=== PATIENT | female | born 1950 | race Caucasian/White ===

== ENCOUNTER 2018-05-04 09:05 | Day surgery (SDC) | payer MEDICARE, BC ==
[2018-04-26 12:35] VITALS: BMI 30.2
[~2018-05-04 09:05] MED LIST: DEXAMETHASONE SOD PHOSPHATE 10 MG/ML 1 ML VIAL IV ONE; HEPARIN SODIUM,PORCINE 5,000 UNIT/ML 1 ML VIAL SQ ONE; LACTATED RINGERS 1,000 ML IV SCH; LIDOCAINE 1% 20 ML VIAL (10MG/ML) FOR IV START INTRADERMA PRN; Pre Op ABX Message 1 EACH MISC MISCELLANE ONE; fentaNYL (PF) 50 MCG/ML 2 ML AMP IV PRN
--- NOTE | 2018-05-04 10:04 | P.GSHP ---
History of Present Illness H&P Date: 05/04/18 Chief Complaint: Left arm melanoma This a 68-year-old female referred from Dr. Angel. Patient had a left dorsal forearm 1.9 cm skin lesion. Patient had a left arm skin lesion which was biopsied. Patient's found have a melanoma. She presents today for wide local excision of left arm melanoma with sentinel node biopsy. The tumor thickness on biopsy 1.6 mm. Past Medical History Past Medical History: Cancer, Eye Disorder, Hyperlipidemia, Hypertension, Osteoarthritis (OA), Thyroid Disorder Additional Past Medical History / Comment(s): melanoma, glaucoma rt eye, gallbladder attack years ago, History of Any Multi-Drug Resistant Organisms: None Reported Past Surgical History: Tubal Ligation Additional Past Surgical History / Comment(s): D&C, javan cataracts, drain in rt eye(for glaucoma), mole removed from rt shoulder Past Anesthesia/Blood Transfusion Reactions: No Reported Reaction Smoking Status: Former smoker - Past Family History Father Family Medical History: Cancer Additional Family Medical History / Comment(s): colon, skin Mother Family Medical History: Cancer Additional Family Medical History / Comment(s): skin Brother(s) Family Medical History: Cancer Additional Family Medical History / Comment(s): prostate Daughter(s) Family Medical History: Deep Vein Thrombosis (DVT) Medications and Allergies Home Medications Medication Instructions Recorded Confirmed Type Benazepril HCl 20 mg PO DAILY 04/26/18 04/26/18 History Celery Seed 500 mg PO DAILY 04/26/18 04/26/18 History Dorzolamide-Timolol 2%/0.5% 1 drop RIGHT EYE BID 04/26/18 04/26/18 History [dorzolamide-Timolol 2%/0.5%] Fish Oil Cap 1 cap PO DAILY 04/26/18 04/26/18 History Flaxseed Oil [[place]-3 Flaxseed Oil] 1,000 mg PO W/SUPPER 04/26/18 04/26/18 History Levothyroxine Sodium [Synthroid] 50 mcg PO HS 04/26/18 04/26/18 History Potassium 99 mg PO W/SUPPER 04/26/18 04/26/18 History Simvastatin [Zocor] 20 mg PO HS 04/26/18 04/26/18 History Ubidecarenone [Co Q-10] 100 mg PO DAILY 04/26/18 04/26/18 History Vitamin C/Biotin [Hair, Skin and 1 tab PO DAILY 04/26/18 04/26/18 History Nails] Zinc Tab 1 tab PO DAILY 04/26/18 04/26/18 History Allergies Allergy/AdvReac Type Severity Reaction Status Date / Time ragweed pollen Allergy Unknown Verified 04/26/18 12:20 Surgical - Exam - General well developed, no distress - Eyes PERRL - ENT normal pinna - Neck no masses - Respiratory normal expansion - Cardiovascular Rhythm: regular - Abdomen Abdomen: soft, non tender - Integumentary Dorsal left forearm 1.6 cm left arm melanoma with biopsy site well healed Assessment and Plan Assessment: Left forearm melanoma. We'll perform wide local excision with sentinel node biopsy.
[2018-05-04] MEDS ORDERED: ALPRAZolam 0.25 MG TAB ONE (10:06)
[2018-05-04] MEDS ORDERED: ALPRAZolam 0.25 MG TAB PO ONE (10:10)
[2018-05-04] MEDS ORDERED: LIDOCAINE 1% 20 ML VIAL (10MG/ML) FOR IV START INTRADERMA ONE (10:15)
[2018-05-04] MEDS: ONDANSETRON 4 MG/2 ML VIAL IVP ONE ×2 (11:26→16:58)
--- NOTE | 2018-05-04 12:45 | NM ---
EXAMINATION TYPE: NM sentinel node imaging DATE OF EXAM: 05/04/2018 COMPARISON: NONE HISTORY: Left forearm melanoma. TECHNIQUE AND FINDINGS: The procedure of sentinel lymph node injection was explained to the patient. The benefits, alternatives, and risks were discussed. An informed consent was then obtained. Overlying skin is cleaned with sterile alcohol. Following this, 518 uCi Tc 99m lymphoseek was injecte d at 12, 3, 6, and 9:00 position surrounding the left forearm residual melanoma and scar intradermall y. The injection sites were massaged by nuclear engineer after injection. The patient tole rated the procedure well without any immediate complication. The patient was kept in the radiology d epartment for short stay after the procedure and then taken to surgery for surgical procedure what is presumed intraoperative gamma probe will be used for sentinel lymph node detection. Imaging was obt ained showing progressive proximal uptake in the left upper extremity with axillary lymph nodes ident ified IMPRESSION: Left forearm melanoma radiotracer injection for sentinel node localization as above.
[2018-05-04] MEDS: MIDAZOLAM 2 MG/2 ML VIAL IV PRN ×3 (13:14→13:55)
[2018-05-04] MEDS ORDERED: ROPIVACAINE 5 MG/ML 30 ML VIAL MISCELLANE ONE ×2 (14:29→14:32)
[2018-05-04] MEDS ORDERED: METHYLENE BLUE 10 MG/ML (10 ML VIAL) INJ ONE (14:30)
[2018-05-04] MEDS ORDERED: LIDOCAINE 1% INJ 10MG/ML (20 ML MDV) ONE (14:36)
[2018-05-04] MEDS ORDERED: MIDAZOLAM 2 MG/2 ML VIAL ONE (14:36)
[2018-05-04] MEDS ORDERED: fentaNYL (PF) 50 MCG/ML 2 ML AMP ONE (14:36)
[2018-05-04] MEDS ORDERED: PHENYLEPHRINE-0.9% NACL SYG 1 MG/10 ML SYRINGE ONE (14:36)
[2018-05-04] MEDS ORDERED: SUCCINYLCHOLINE CHLORIDE 100 MG/5 ML SYR IV ONE (14:36)
[2018-05-04] MEDS ORDERED: PROPOFOL 10 MG/ML 20 ML VIAL IV ONE (14:36)
[2018-05-04] MEDS ORDERED: SODIUM CHLORIDE 0.9% 50 ML with ceFAZolin 2,000 MG IV ONE ×2 (15:00)
[2018-05-04] MEDS ORDERED: LACTATED RINGERS 1,000 ML IV ONE (15:10)
--- NOTE | 2018-05-04 15:50 | P.OP ---
Date of Procedure: 05/04/18 Preoperative Diagnosis: Melanoma left arm Postoperative Diagnosis: Melanoma left arm normal left arm Procedure(s) Performed: Wide local excision melanoma left arm [place] node biopsy of axillary lymph node Anesthesia: MORGAN Surgeon: Holden Malagon Estimated Blood Loss (ml): 20 Pathology: other (Melanoma left arm, left axillary sentinel lymph node) Condition: stable Disposition: PACU Description of Procedure: Patient's placed in the operative table in the supine position. She received general anesthesia. Her left arm was prepped and draped usual sterile fashion. The patient had been previously localized the nuclear medicine department. 5 mL of methylene blue were injected around the melanoma lesion. The area was massaged for 5 minutes. Next an incision was made in the axilla. The subcu tissues were divided with left cautery. And then using the neoprobe the location of the sentinel node was found. Using the Harmonic scissors a small amount was dissected free. Next an elliptical skin incision was made around the melanoma. The area had a 3 -4 cm excision around the lesion. The Bovie hemostasis. The subcu tissues were divided with left cautery. The distal aspect of the specimen was marked with a 3-0 Vicryl suture. The skin was closed in 2 layers using 3-0 Vicryl and 3-0 Monocryl. Dermabond dressings was applied. The axillary incision was inspected. There is no bleeding seen. The skin was closed with 2 layers using 3-0 Vicryl and Monocryl. Steri-Strips were applied. Patient top she will was sent to recovery in stable condition.
[2018-05-04 15:58] VITALS: RESP 16; TEMP 97.8
[2018-05-04] MEDS: HYDROmorphone 0.5 MG/0.5 ML SYRINGE IVP PRN ×5 (16:27→16:53)
[2018-05-04] MEDS ORDERED: KETOROLAC 30 MG/ML 1 ML VIAL IVP ONE (17:38)
[2018-05-04] MEDS ORDERED: HYDROcodone/APAP 7.5-325MG 1 EACH TAB PO ONE (18:10)
[2018-05-04 19:46] VITALS: BP 143/70; PULSE 77
== END 2018-05-04 18:58 | disposition home or self-care (01) ==
LOC: OR 09:05
PROVIDERS: ATTEND Surgery
DX: C43.62 Malignant melanoma of left upper limb, including shoulder (principal); L57.8 Other skin changes due to chronic exposure to nonionizing radiation; H40.9 Unspecified glaucoma; E78.5 Hyperlipidemia, unspecified; I10 Essential (primary) hypertension; M19.90 Unspecified osteoarthritis, unspecified site; E07.9 Disorder of thyroid, unspecified; J30.1 Allergic rhinitis due to pollen; Z79.890 Hormone replacement therapy; Z79.899 Other long term (current) drug therapy; Z98.51 Tubal ligation status; Z87.891 Personal history of nicotine dependence
CPT/HCPCS: 88305; 88342; 88307; 88341; 78195; 11604; 12032; 38525; A9520; J2250; J1644; J1100; J2405; J2001; Q9968; J3010; J1885; J0690; J2795; J2370; J0330; J2704; J1170